=== PATIENT | male | born 1990 | race Caucasian/White ===

== ENCOUNTER 2016-08-10 15:07 | Emergency (ER) | payer OTHER ==
[~2016-08-10] VITALS: Ht 172.7 cm; Wt 87.5 kg
[2016-08-10] MEDS ORDERED: IBUPROFEN 800 MG TABLET PO ONE (16:00)
--- NOTE | 2016-08-10 16:14 | NUR ---
PATIENT WAS SEEN BY DR GOLDSTEIN FOR C/O RIGHT HAND PAIN. XRAY DONE. PT STATES HE PREFERS TYLENOL OVER IBUPROFEN BECAUSE HE "HAS STOMACH ULCERS". TYLENOL GIVEN ORDERED.
[2016-08-10] MEDS ORDERED: ACETAMINOPHEN ES 500 MG TABLET PO ONE (16:15)
[2016-08-10] MEDS ORDERED: ACETAMINOPHEN ES 500 MG TABLET ONE (16:16)
--- NOTE | 2016-08-10 17:22 | NUR ---
DC, RX AND FOLLOW UP INSTRUCTIONS GIVEN AND EXPLAINED TO PATIENT WHO STATES HE UNDERSRANDS ALL INSTRUCTIONS. XRAY DISC GIVEN TO PATIENT TO TAKE TO ORTHOPEDIC SURGEON.
== END 2016-08-10 17:24 | disposition home or self-care (01) ==
LOC: ER 15:08
DX: S62.91XA Unspecified fracture of right hand, initial encounter for closed fracture (principal); X58.XXXA Exposure to other specified factors, initial encounter; Y93.89 Activity, other specified; Y99.8 Other external cause status; Y92.89 Other specified places as the place of occurrence of the external cause
CPT/HCPCS: 73130; A4663

== ENCOUNTER 2016-10-18 15:50 | Emergency (ER) | payer OTHER ==
[~2016-10-18] VITALS: Ht 172.7 cm; Wt 80.3 kg
--- NOTE | 2016-10-18 16:18 | NUR ---
Patient discharged to home in stable conditon. Verbal after care instructions given to patient by MD. Patient verbalizes understanding of instructions.
== END 2016-10-18 16:18 | disposition home or self-care (01) ==
LOC: ER 15:51
DX: F41.9 Anxiety disorder, unspecified (principal)
CPT/HCPCS: 99284; A4663

== ENCOUNTER 2017-01-31 18:03 | Emergency (ER) | payer OTHER ==
[~2017-01-31] VITALS: Ht 172.7 cm; Wt 79.4 kg
--- NOTE | 2017-01-31 18:23 | NUR ---
Dr Castro is at bedside evaluating the patient.
[2017-01-31] MEDS ORDERED: predniSONE 10 MG TABLET PO ONE (18:30)
[2017-01-31] MEDS ORDERED: ALBUTEROL SULFATE 2.5 MG/3 ML NEBU NEB ONE (18:30)
[2017-01-31] MEDS ORDERED: IPRATROPIUM BROMIDE 0.5 MG/2.5 ML NEBU NEB ONE (18:30)
[2017-01-31] MEDS ORDERED: predniSONE 10 MG TABLET ONE (18:43)
[2017-01-31] MEDS ORDERED: predniSONE 50 MG TABLET ONE (18:44)
[2017-01-31] MEDS ORDERED: ALBUTEROL SULFATE 2.5 MG/ 0.5 ML NEBU ONE (18:45)
[2017-01-31] MEDS ORDERED: IPRATROPIUM BROMIDE 0.5 MG/2.5 ML NEBU ONE (18:45)
--- NOTE | 2017-01-31 19:17 | NUR ---
Patient is resting comfortably on gurney while neb treatment is in progress, endorsed to 7pm ADONIS kunz
[2017-01-31 20:52] VITALS: BP 127/56
--- NOTE | 2017-01-31 20:54 | NUR ---
PT IN NO DISTRESS, PT ADVISED TO F/U WITH PMD OR RETURN TO ER FOR WORSENING OF SYMPTOMS,VERBALIZES UNDERSTANDING, RX GIVEN TO PT
== END 2017-01-31 21:02 | disposition home or self-care (01) ==
LOC: ER 18:04
DX: J45.901 Unspecified asthma with (acute) exacerbation (principal); Z87.891 Personal history of nicotine dependence
CPT/HCPCS: A4663; J3590; J7512

== ENCOUNTER 2021-10-02 13:22 | Emergency (ER) | payer MEDICAID, OTHER ==
[~2021-10-02] VITALS: Ht 172.7 cm; Wt 90.3 kg
--- NOTE | 2021-10-02 13:43 | NUR ---
PT IS IN ROOM #1B. DR CORRAL EVALUATED THE PT.
[2021-10-02] MEDS ORDERED: IBUP-1955 PO (14:42)
--- NOTE | 2021-10-02 14:56 | NUR ---
PT WAS D/C'd TO HOME. D/C INSTRUCTIONS GIVEN TO THE PT BY DR CORRAL.
[2021-10-02 14:58] VITALS: BP 136/74
== END 2021-10-02 14:59 | disposition home or self-care (01) ==
LOC: ER 13:22
DX: S46.001A Unspecified injury of muscle(s) and tendon(s) of the rotator cuff of right shoulder, initial encounter (principal); V86.56XA Driver of dirt bike or motor/cross bike injured in nontraffic accident, initial encounter; Y93.89 Activity, other specified; Y92.89 Other specified places as the place of occurrence of the external cause; J45.909 Unspecified asthma, uncomplicated; Z87.891 Personal history of nicotine dependence
CPT/HCPCS: 73030; A4663